=== PATIENT | female | born 1975 | race Asian ===

== ENCOUNTER → 2016-09-17 20:14 | Emergency (ER) | END | disposition left against medical advice (07) | LOC: UCEAST 20:14 | DX: R21 Rash and other nonspecific skin eruption (principal); Z53.21 Procedure and treatment not carried out due to patient leaving prior to being seen by health care provider ==

== ENCOUNTER 2016-09-18 09:45 | Emergency (ER) | END 2016-09-18 10:42 | disposition left against medical advice (07) | LOC: UCEAST 09:45 | DX: R21 Rash and other nonspecific skin eruption (principal); Z53.21 Procedure and treatment not carried out due to patient leaving prior to being seen by health care provider ==

== ENCOUNTER 2016-09-18 10:43 | Emergency (ER) | payer SELFPAY ==
[2016-09-18 10:58] VITALS: BP 105/70
--- NOTE | 2016-09-18 12:01 | UC ---
Skin Complaint HPI - HPI Summary HPI Summary: 41 y/o female presents to the clinic c/o of a rash on the back of her neck for the past 2 month. She states she was using Ketaconazol 2%cream, but rash hasn' t resolved. She realized yesterday the topical cream has since 2010. Patient states rash itches a lot and is increasing in size. Pt denies fever, N/ V/D or SOB. She also c/o of a small ball she feels in her RT forearm. She states she noticed about a week ago with no associated pain. - History of Current Complaint Chief Complaint: UCSkin Time Seen by Provider: 09/18/16 11:10 Stated Complaint: RASH,BUMP ON HER NECK Hx Obtained From: Patient Hx Last Menstrual Period: 09/01/16 ?: No Onset/Duration: Sudden Onset, Gradual Onset, Lasting Weeks, Still Present Timing: Constant Onset Severity: Moderate Current Severity: Moderate Pain Intensity: 0 Pain Scale Used: 0-10 Numeric Location: Other - Posterior side of the neck spreading to the scalp Character: Pruritus, Redness, Raised Aggravating: Wet Conditions, Touch Alleviating: Nothing Associated Signs & Symptoms: Positive: Negative, Nausea - Allergy/Home Medications Allergies/Adverse Reactions: Allergies Allergy/AdvReac Type Severity Reaction Status Date / Time Cat Hair Extract Allergy Intermediate Difficulty Verified 09/18/16 10:51 Breathing/Wheezing Latex Allergy Mild Itching Verified 09/18/16 10:51 Lactose Intolerance AdvReac Mild Unknown Verified 09/18/16 10:51 Reaction Details Home Medications: Home Medications Ketoconazole (Topical) [Ketoconazole] 1 applic TOPICAL BID 09/18/16 [History Confirmed 09/18/16] Simethicone [Gas-X] 1 tab PO DAILY PRN 09/18/16 [History Confirmed 09/18/16] Review of Systems Constitutional: Negative Skin: Rash - posterior neck rash with itchiness, Other - small mass in the forearm with no pain or swelling Eyes: Negative ENT: Negative Respiratory: Negative Cardiovascular: Negative Gastrointestinal: Negative Genitourinary: Negative Motor: Negative Neurovascular: Negative Musculoskeletal: Negative Neurological: Negative Psychological: Negative All Other Systems Reviewed And Are Negative: Yes PMH/Surg Hx/FS Hx/Imm Hx Previously Healthy: Yes Endocrine History Of: Denies: Diabetes, Thyroid Disease Cardiovascular History Of: Denies: Cardiac Disorders, Hypertension, Pacemaker/ICD Respiratory History Of: Denies: COPD, Asthma GI/ History Of: Denies: Gastroesophageal Reflux, Renal Disease Neurological History Of: Denies: CVA, Dementia, Seizures Psychological History Of: Reports: Depression Other History Of: Negative For: Anticoagulant Therapy - Surgical History Surgical History: Yes Surgery Procedure, Year, and Place: LEFT ANKLE and knee 1998, L4/5 LAMINECTOMY AND DISCECTOMY -02-16-12 [place], [place] , right knee surgery 2000 - Family History Known Family History: Positive: Unknown - patient is adopted - Social History Lives: With Family Alcohol Use: Occasionally Substance Use Type: None Smoking Status (MU): Never Smoked Tobacco - Immunization History Most Recent Influenza Vaccination: fall 2015 Most Recent Tetanus Shot: 11/15/13 Most Recent Pneumonia Vaccination: no history Physical Exam Triage Information Reviewed: Yes Appearance: Well-Appearing, No Pain Distress, Well-Nourished, Thin Vital Signs: Initial Vital Signs Temp 98.1 F 09/18/16 10:53 Pulse 64 09/18/16 10:53 Resp 16 09/18/16 10:53 BP 105/70 09/18/16 10:53 Pulse Ox 98 09/18/16 10:53 Vital Signs Reviewed: Yes Eye Exam: Normal ENT Exam: Normal ENT: Positive: Normal ENT inspection, Hearing grossly normal, Pharynx normal, TMs normal. Negative: Nasal congestion Dental Exam: Normal Neck exam: Normal Neck: Positive: Supple, Nontender, No Lymphadenopathy Respiratory Exam: Normal Respiratory: Positive: Chest non-tender, Lungs clear, Normal breath sounds Cardiovascular Exam: Normal Cardiovascular: Positive: RRR, No Murmur, Pulses Normal Abdominal Exam: Normal Abdomen Description: Positive: Nontender, No Organomegaly, Soft Bowel Sounds: Positive: Present Musculoskeletal Exam: Normal Neurological Exam: Normal Psychological Exam: Normal Skin: Positive: rashes - Posterior neck skin rash with erythema and raised border about 2cm x3cm in size with central clearing and scaling. no swelling or tenderness on palpation. Spreading to the scalp. Also small subcutaneous rolling mass on ventral side of Rt forearm. size:1cm no swelling or erythema noted, no tenderness on palpation Course/Dx - Differential Diagnoses - Skin Complaint Differential Diagnoses: Cellulitis, Eczema, Scabies, Tinea, Urticaria - Diagnoses Provider Diagnoses: tinea corporis, lipoma Discharge - Discharge Plan Condition: Stable Disposition: HOME Prescriptions: Terbinafine HCl (Topical) [Lamisil At] 1 % TOPICAL DAILY #1 cre Patient Education Materials: Tinea Corporis (ED), Lipoma (ED) Referrals: [facility] [Outside] (2 weeks ) Additional Instructions: Please apply topical cream as indicated. Use Selenium Sulfide shampoo topically 3 times per week for a month. If symptoms persists please f/u with your PCP.
== END 2016-09-18 11:58 | disposition home or self-care (01) ==
LOC: UCEAST 10:43
DX: B35.4 Tinea corporis (principal); D17.1 Benign lipomatous neoplasm of skin and subcutaneous tissue of trunk; F32.9 Major depressive disorder, single episode, unspecified
CPT/HCPCS: 99212; G0463

== ENCOUNTER 2017-05-27 20:28 | Emergency (ER) | payer BC, OTHER ==
--- NOTE | 2017-05-27 21:22 | RAD ---
INDICATION: Trauma. COMPARISON: Comparison is made with a prior CT of the cervical spine from May 06, 2013. TECHNIQUE: Contiguous axial sections were obtained from the skull base through the T3 vertebra. Images were reconstructed in the sagittal and coronal planes. FINDINGS: There is straightening of the cervical spine with loss of the normal cervical lordosis. No prevertebral soft tissue swelling or fracture is seen. The intervertebral disc spaces appear maintained. There is mild uncinate process spurring at multiple levels. No significant spinal canal narrowing is seen. IMPRESSION: STRAIGHTENING OF THE CERVICAL SPINE, NO EVIDENCE FOR FRACTURE.
--- NOTE | 2017-05-27 21:40 | RAD ---
INDICATION: Right knee injury. TECHNIQUE: 2 views of the right knee were obtained. FINDINGS: The bones are in normal alignment. There is anterior soft tissue swelling. Air bubbles project over the region of the distal quadriceps muscle and tendon anterior to the femur which would be with the patient's history of a laceration injury. No fracture is seen. IMPRESSION: THERE IS AIR WITHIN THE ANTERIOR SOFT TISSUES, NO FRACTURE IS SEEN.
[2017-05-28] MEDS ORDERED: traMADol TAB* 50 MG PO ONE (00:09)
[2017-05-28 01:05] VITALS: BP 120/79
--- NOTE | 2017-05-29 22:59 | ED ---
Laceration/Wound HPI - HPI Summary HPI Summary: Patient presents [facility] the ED [facility] with a laceration to the anterior right knee from a snowboarding accident a few hours ago. She states when she was facing up until she was hit by a skier coming down the hill from behind she fell backwards but denies hitting her head. She reports a mild amount of dizziness and was placed in a c-collar on arrival. She denies any loss of consciousness and on physical exam she notes to no symptoms other than some knee pain. Knee x-ray obtained and negative for any findings. Laceration appears to be 2.5 cm and very superficial. Denies any health concerns and takes no medications. - History of Current Complaint Stated Complaint: HEAD INJURY/LACERATION RT LEG Time Seen by Provider: 05/27/17 20:55 Hx Obtained From: Patient Hx Last Menstrual Period: 09/01/16 Mechanism of Injury: Sharp/Blunt Trauma Onset/Duration: Sudden Onset Aggravating: Movement Alleviating: Compression Timing: Constant Onset Severity: Mild Current Severity: Mild Pain Intensity: 0 Pain Scale Used: 0-10 Numeric Associated Signs & Symptoms: Negative - Allergy/Home Medications Allergies/Adverse Reactions: Allergies Allergy/AdvReac Type Severity Reaction Status Date / Time MS Cat Hair Extract Allergy Intermediate Difficulty Verified 05/27/17 23:41 [Cat Hair Extract] Breathing/Wheezing MS Latex [Latex] Allergy Mild Itching Verified 05/27/17 23:41 MS Lactose Intolerance AdvReac Mild Unknown Verified 05/27/17 23:41 Reaction Details PMH/Surg Hx/FS Hx/Imm Hx Previously Healthy: Yes Endocrine/Hematology History: Denies: Hx Anticoagulant Therapy, Hx Diabetes, Hx Thyroid Disease Cardiovascular History: Denies: Hx Hypertension, Hx Pacemaker/ICD Respiratory History: Denies: Hx Asthma, Hx Chronic Obstructive Pulmonary Disease (COPD) GI History: Reports: Hx Irritable Bowel History: Denies: Hx Renal Disease Musculoskeletal History: Reports: Hx Arthritis Sensory History: Denies: Hx Hearing Aid Neurological History: Denies: Hx Dementia, Hx Seizures Psychiatric History: Reports: Hx Depression Denies: Hx Panic Disorder, Hx Substance Abuse - Surgical History Surgery Procedure, Year, and Place: LEFT ANKLE and knee 1998, L4/5 LAMINECTOMY AND DISCECTOMY -02-16-12 [place], [place] , right knee surgery 2000 Hx Anesthesia Reactions: No - Immunization History Date of Tetanus Vaccine: utd Date of Influenza Vaccine: 2016 Hx Pertussis Vaccination: No Immunizations Up to Date: Unable to Obtain/Confirm Infectious Disease History: No Infectious Disease History: Reports: Hx Hepatitis - hep as an Denies: Hx Clostridium Difficile, Hx Human Immunodeficiency Virus (HIV), Hx Shingles, Hx Tuberculosis, Traveled Outside the [place] in Last 30 Days - Family History Known Family History: Positive: Unknown - patient is adopted - Social History Occupation: Employed Full-time Lives: With Family Alcohol Use: Occasionally Hx Substance Use: Yes Substance Use Type: Reports: None Hx Tobacco Use: No Smoking Status (MU): Never Smoked Tobacco Review of Systems Constitutional: Negative Negative: Fever, Chills, Fatigue Eyes: Negative Cardiovascular: Negative Genitourinary: Negative Positive: no symptoms reported, see HPI Positive: Arthralgia Positive: Other - 2.5 cm horizontal laceration to the anterior knee Neurological: Negative All Other Systems Reviewed And Are Negative: Yes Physical Exam Triage Information Reviewed: Yes Vital Signs On Initial Exam: Initial Vitals Temp Pulse Resp BP Pulse Ox 99.6 F 81 18 116/79 97 05/27/17 20:34 05/27/17 20:34 05/27/17 20:34 05/27/17 20:34 05/27/17 20:34 Vital Signs Reviewed: Yes Appearance: Positive: Well-Appearing, Well-Nourished Skin: Positive: Warm, Skin Color Reflects Adequate Perfusion, Other - 2.5 cm laceration to the anterior knee Eyes: Positive: Normal, KELVIN ENT: Positive: Normal ENT inspection, Hearing grossly normal Neck: Positive: Supple, Nontender, No Lymphadenopathy Respiratory/Lung Sounds: Positive: Clear to Auscultation, Breath Sounds Present Cardiovascular: Positive: RRR, Pulses are Symmetrical in both Upper and Lower Extremities Musculoskeletal: Positive: Normal, Strength/ROM Intact, Pain @ - Anterior right knee, full range of motion Neurological: Positive: Speech Normal Psychiatric: Positive: Normal AVPU Assessment: Alert Diagnostics - Vital Signs Vital Signs Temp Pulse Resp BP Pulse Ox 05/28/17 01:04 99.9 F 78 16 120/79 97 05/27/17 20:34 99.6 F 81 18 116/79 97 - Laboratory Lab Statement: Any lab studies that have been ordered have been reviewed, and results considered in the medical decision making process. Laceration Repair Course/Dx - Course Course Of Treatment: Patient is evaluated for right knee pain and laceration and neck discomfort after sustaining a skiing accident. Cervical CT spine ordered and negative for any fracture or other acute finding. Patient is rotating about the neck well as well as flexion and extension. Denies numbness , tingling in the bilateral upper extremities. She endorses 5 out of 10 pain to the anterior knee, but has full range of motion. Timeout obtained laceration irrigated well with 20 cc normal saline. 2ml lidocaine used locally and 4 sutures placed. The knee was gauze and then Mesfin wrapped. Patient is able to ambulate well prior to discharge. She will follow up for suture removal in 7 days. She denies any other concerns at this time. - Clinical Impression Provider Diagnoses: Laceration of right knee Discharge - Discharge Plan Condition: Stable Disposition: HOME Patient Education Materials: Care For Your Stitches (ED) Referrals: No Primary Care Phys,NOPCP [Primary Care Provider] - Additional Instructions: Suture removal in 7 days Ibuprofen 600 mg 3 times daily for inflammation Elevate and ice the knee periodically throughout the day up to 3-5 times daily Keep the knee Mesfin wrapped 24 hours If you feel the sutures are pulling, you may keep the Mesfin wrap on for 7 days Signs of infection include streaks of red around the wound, swelling to the laceration or abnormal drainage or if you develop a fever If these symptoms occur return to the ED immediately
== END 2017-05-28 01:04 | disposition home or self-care (01) ==
LOC: ED 20:28
DX: S81.011A Laceration without foreign body, right knee, initial encounter (principal); W50.0XXA Accidental hit or strike by another person, initial encounter; Y93.23 Activity, snow (alpine) (downhill) skiing, snowboarding, sledding, tobogganing and snow tubing; Y92.9 Unspecified place or not applicable; K58.9 Irritable bowel syndrome, unspecified; M54.2 Cervicalgia
CPT/HCPCS: 12001; 72125; 99282; A9270-GY

== ENCOUNTER 2017-06-03 13:40 | Emergency (ER) | payer BC, OTHER ==
[2017-06-03 13:54] VITALS: BP 121/76
--- NOTE | 2017-06-03 18:01 | ED ---
Skin Complaint - HPI Summary HPI Summary: Patient presents to the ED with a recheck and suture removal of the right knee. Sutures placed last week by myself for a laceration from a skiing accident. No ecchymosis, swelling, other color or temperature changes around the knee is present. Full range of motion without pain. 7 sutures remain discretely in place. Clean dry and intact and healing well. She was not placed on antibiotics. She is here for suture removal and denies any concerns at this time. - History of Current Complaint Chief Complaint: EDLacSutureRecheck Time Seen by Provider: 06/03/17 13:48 Stated Complaint: NEEDS TO HAVE STICHES OUT Hx Obtained From: Patient Hx Last Menstrual Period: 09/01/16 Onset/Duration: Started Hours Ago Skin Exposure Onset/Duration: Days Ago Onset Severity: Mild Current Severity: None Pain Intensity: 0 Pain Scale Used: 0-10 Numeric Skin Location: Leg Aggravating Symptom(s): Nothing Alleviating Symptom(s): Nothing Associated Signs & Symptoms: Negative Related History: Trauma - Allergy/Home Medications Allergies/Adverse Reactions: Allergies Allergy/AdvReac Type Severity Reaction Status Date / Time MS Cat Hair Extract Allergy Intermediate Difficulty Verified 05/27/17 23:41 [Cat Hair Extract] Breathing/Wheezing MS Latex [Latex] Allergy Mild Itching Verified 05/27/17 23:41 MS Lactose Intolerance AdvReac Mild Unknown Verified 05/27/17 23:41 Reaction Details PMH/Surg Hx/FS Hx/Imm Hx Previously Healthy: Yes Endocrine/Hematology History: Denies: Hx Anticoagulant Therapy, Hx Diabetes, Hx Thyroid Disease Cardiovascular History: Denies: Hx Hypertension, Hx Pacemaker/ICD Respiratory History: Denies: Hx Asthma, Hx Chronic Obstructive Pulmonary Disease (COPD) GI History: Reports: Hx Irritable Bowel History: Denies: Hx Renal Disease Musculoskeletal History: Reports: Hx Arthritis Neurological History: Denies: Hx Dementia, Hx Seizures Psychiatric History: Reports: Hx Depression Denies: Hx Panic Disorder, Hx Substance Abuse - Surgical History Surgery Procedure, Year, and Place: LEFT ANKLE and knee 1998, L4/5 LAMINECTOMY AND DISCECTOMY -02-16-12 [place], [place] , right knee surgery 2000 Hx Anesthesia Reactions: No - Immunization History Date of Tetanus Vaccine: utd Date of Influenza Vaccine: 2015 Infectious Disease History: No Infectious Disease History: Reports: Hx Hepatitis - hep as an Denies: Hx Clostridium Difficile, Hx Human Immunodeficiency Virus (HIV), Hx Shingles, Hx Tuberculosis, Traveled Outside the [place] in Last 30 Days - Family History Known Family History: Positive: Unknown - patient is adopted - Social History Occupation: Employed Full-time Lives: With Family Alcohol Use: Occasionally Hx Substance Use: Yes Substance Use Type: Reports: None Hx Tobacco Use: No Smoking Status (MU): Never Smoked Tobacco Review of Systems Constitutional: Negative Negative: Fever, Chills, Fatigue Eyes: Negative Respiratory: Negative Genitourinary: Negative Positive: no symptoms reported, see HPI Negative: Arthralgia, Myalgia, Decreased ROM, Edema Positive: Other - healing 3 cm wound with 7 sutures Neurological: Negative All Other Systems Reviewed And Are Negative: Yes Physical Exam Triage Information Reviewed: Yes Vital Signs On Initial Exam: Initial Vitals Temp Pulse Resp BP Pulse Ox 97 F 78 17 121/76 100 06/03/17 13:46 06/03/17 13:46 06/03/17 13:46 06/03/17 13:46 06/03/17 13:46 Vital Signs Reviewed: Yes Appearance: Positive: Well-Appearing, Well-Nourished Skin: Positive: Warm, Skin Color Reflects Adequate Perfusion, Other - No evidence of dehiscence or infection Head/Face: Positive: Normal Head/Face Inspection Eyes: Positive: KELVIN, Conjunctiva Clear Neck: Positive: Supple, No Lymphadenopathy Respiratory/Lung Sounds: Positive: Clear to Auscultation, Breath Sounds Present Cardiovascular: Positive: RRR, Pulses are Symmetrical in both Upper and Lower Extremities Musculoskeletal: Positive: Normal, Strength/ROM Intact Neurological: Positive: Speech Normal Psychiatric: Positive: Affect/Mood Appropriate AVPU Assessment: Alert Diagnostics - Vital Signs Vital Signs Temp Pulse Resp BP Pulse Ox 06/03/17 13:56 98.2 F 81 17 121/76 100 06/03/17 13:46 97 F 78 17 121/76 100 - Laboratory Lab Statement: Any lab studies that have been ordered have been reviewed, and results considered in the medical decision making process. Course/Dx - Course Course Of Treatment: During the course of treatment, the patient is evaluated for suture removal. The wound appears clean dry and intact. 7 sutures are discretely in place with no surrounding erythema, swelling or other signs of infection. She appears otherwise well and denies any concerns. Sutures removed , antibiotic ointment and gauze wrapped. - Diagnoses Provider Diagnoses: Visit for suture removal Discharge - Discharge Plan Condition: Stable Disposition: HOME Patient Education Materials: Stitches Removal (ED) Referrals: Lazaro Lomeli MD [Primary Care Provider] - Additional Instructions: anitbiotic ointment over the area if dry
== END 2017-06-03 13:56 | disposition home or self-care (01) ==
LOC: ED 13:40
DX: S81.011D Laceration without foreign body, right knee, subsequent encounter (principal); V00.328D Other snow-ski accident, subsequent encounter

== ENCOUNTER 2017-06-04 16:02 | Emergency (ER) | payer OTHER ==
[2017-06-04 16:35] VITALS: BP 0/0
--- NOTE | 2017-06-04 17:10 | ED ---
Skin Complaint - HPI Summary HPI Summary: Patient presents to the ED for the second time for wound recheck. Sutures were removed yesterday by myself. She arrives today with serosanguineous drainage from the area which is mild. She continues to keep the area wrapped. She is concerned with infection. She was seen several months ago for a back infection , and became septic with MSSA positive, MRSA negative. She is concerned over a furthering infection is requesting antibiotics. She denies any other symptoms including fevers, sweats, chills. No signs of systemic illness. There is no erythema around the wound. Small amount of serosanguineous drainage from the area without pus. No swelling or other signs of infection. - History of Current Complaint Chief Complaint: EDLacSutureRecheck Time Seen by Provider: 06/04/17 16:16 Stated Complaint: RT LEG POSSIBLE INFECTION Hx Obtained From: Patient Hx Last Menstrual Period: 09/01/16 Onset/Duration: Started Hours Ago Skin Exposure Onset/Duration: Hours Ago Timing: Constant Onset Severity: Moderate Current Severity: Moderate Pain Intensity: 0 Pain Scale Used: 0-10 Numeric Skin Location: Other: - Right knee Aggravating Symptom(s): Nothing Alleviating Symptom(s): Nothing Associated Signs & Symptoms: Negative Related History: Trauma - Allergy/Home Medications Allergies/Adverse Reactions: Allergies Allergy/AdvReac Type Severity Reaction Status Date / Time MS Cat Hair Extract Allergy Intermediate Difficulty Verified 05/27/17 23:41 [Cat Hair Extract] Breathing/Wheezing MS Latex [Latex] Allergy Mild Itching Verified 05/27/17 23:41 MS Lactose Intolerance AdvReac Mild Unknown Verified 05/27/17 23:41 Reaction Details PMH/Surg Hx/FS Hx/Imm Hx Previously Healthy: Yes Endocrine/Hematology History: Denies: Hx Anticoagulant Therapy, Hx Diabetes, Hx Thyroid Disease Cardiovascular History: Denies: Hx Hypertension, Hx Pacemaker/ICD Respiratory History: Denies: Hx Asthma, Hx Chronic Obstructive Pulmonary Disease (COPD) GI History: Reports: Hx Irritable Bowel History: Denies: Hx Renal Disease Musculoskeletal History: Reports: Hx Arthritis Neurological History: Denies: Hx Dementia, Hx Seizures Psychiatric History: Reports: Hx Depression Denies: Hx Panic Disorder, Hx Substance Abuse - Surgical History Surgery Procedure, Year, and Place: LEFT ANKLE and knee 1998, L4/5 LAMINECTOMY AND DISCECTOMY -02-16-12 [place], [place] , right knee surgery 2000 Hx Anesthesia Reactions: No - Immunization History Date of Tetanus Vaccine: UTD Date of Influenza Vaccine: 2016 Hx Pertussis Vaccination: No Immunizations Up to Date: Unable to Obtain/Confirm Infectious Disease History: No Infectious Disease History: Reports: Hx Hepatitis - hep as an infant Denies: Hx Clostridium Difficile, Hx Human Immunodeficiency Virus (HIV), Hx Shingles, Hx Tuberculosis, Traveled Outside the [place] in Last 30 Days - Family History Known Family History: Positive: Unknown - patient is adopted - Social History Occupation: Employed Full-time Lives: With Family Alcohol Use: Occasionally Hx Substance Use: Yes Substance Use Type: Reports: None Hx Tobacco Use: No Smoking Status (MU): Never Smoked Tobacco Review of Systems Constitutional: Negative Negative: Fever, Chills, Fatigue, Skin Diaphoresis Eyes: Negative ENT: Negative Cardiovascular: Negative Positive: no symptoms reported, see HPI Musculoskeletal: Negative Positive: Other - small amount of serosanguineous drainage from the right knee Neurological: Negative All Other Systems Reviewed And Are Negative: Yes Physical Exam Triage Information Reviewed: Yes Vital Signs On Initial Exam: Initial Vitals Temp Pulse Resp BP Pulse Ox 97.9 F 72 18 122/78 100 06/04/17 16:09 06/04/17 16:09 06/04/17 16:09 06/04/17 16:09 06/04/17 16:09 Vital Signs Reviewed: Yes Appearance: Positive: Well-Appearing, Well-Nourished Skin: Positive: Warm, Skin Color Reflects Adequate Perfusion, Other - Serosanguineous drainage from right knee Head/Face: Positive: Normal Head/Face Inspection Eyes: Positive: EOMI, KELVIN Neck: Positive: Supple Respiratory/Lung Sounds: Positive: Clear to Auscultation, Breath Sounds Present Musculoskeletal: Positive: Normal, Strength/ROM Intact Neurological: Positive: Speech Normal Psychiatric: Positive: Normal, Affect/Mood Appropriate - [place] Coma Scale Best Eye Response: 4 - Spontaneous Best Motor Response: 6 - Obeys Commands Best Verbal Response: 5 - Oriented Coma Scale Total: 15 Diagnostics - Vital Signs Vital Signs Temp Pulse Resp BP Pulse Ox 06/04/17 16:35 0 F 0 0 0/0 0 06/04/17 16:09 97.9 F 72 18 122/78 100 - Laboratory Lab Statement: Any lab studies that have been ordered have been reviewed, and results considered in the medical decision making process. Course/Dx - Course Course Of Treatment: During the first of treatment, I have evaluated the wound well. No signs of infection including erythema, warmth, pus drainage. There is a small amount of serosanguineous fluid drainage which is to be expected after suture removal. The wound is clean and intact. I placed antibiotic ointment on it, gauze wrapped in Mesfin wraps. I have given her a 5 day supply of Keflex to prevent any infection. She is okay with discharge at this time. - Diagnoses Provider Diagnoses: Healing wound Discharge - Discharge Plan Condition: Stable Disposition: HOME Prescriptions: Cephalexin CAP* [Keflex CAP*] 500 mg PO QID #20 cap MDD 4 Referrals: Lazaro Lomeli MD [Primary Care Provider] - Additional Instructions: Keflex 4 times daily 5 days Keep the area covered 3 days You may notice small amounts of serous fluid from the area
== END 2017-06-04 16:35 | disposition home or self-care (01) ==
LOC: ED 16:02
DX: Z48.00 Encounter for change or removal of nonsurgical wound dressing (principal)
CPT/HCPCS: 99282

== ENCOUNTER 2017-06-07 18:32 | Emergency (ER) | payer OTHER ==
[2017-06-07 19:52] VITALS: BP 107/71
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
== END 2017-06-07 20:45 | disposition home or self-care (01) ==
LOC: UCEAST 18:32
DX: T81.33XA Disruption of traumatic injury wound repair, initial encounter (principal); Z91.040 Latex allergy status
CPT/HCPCS: 99213; G0463

== ENCOUNTER 2018-03-19 14:50 | Emergency (ER) | payer BC, OTHER ==
[2018-03-19 16:15] VITALS: BP 112/75
--- NOTE | 2018-03-19 16:29 | UC ---
Respiratory Complaint HPI - HPI Summary HPI Summary: 42-year-old woman comes in to clinic today with a chief complaint of one week of symptoms of cough chest congestion yellow sputum. She is not a smoker. She is short of breath with cough. He's been using [id number] medications which haven't been helping with the cough but they're not working very well any more. - History of Current Complaint Chief Complaint: UCRespiratory Stated Complaint: COUGH Time Seen by Provider: 03/19/18 16:18 Hx Last Menstrual Period: 03/15/18 Pain Intensity: 0 - Allergies/Home Medications Allergies/Adverse Reactions: Allergies Allergy/AdvReac Type Severity Reaction Status Date / Time cat dander Allergy Difficulty Verified 03/19/18 16:17 Breathing lactose Allergy GI Upset Verified 03/19/18 16:17 latex Allergy Itching Verified 03/19/18 16:17 PMH/Surg Hx/FS Hx/Imm Hx Previously Healthy: Yes Other History Of: Negative For: Hepatitis B, Anticoagulant Therapy - Surgical History Surgical History: Yes Surgery Procedure, Year, and Place: LEFT ANKLE and knee 1998, L4/5 LAMINECTOMY AND DISCECTOMY -02-16-12 [place], [place] , right knee surgery 2000 - Family History Known Family History: Positive: Unknown - patient is adopted - Social History Alcohol Use: Occasionally Substance Use Type: None Smoking Status (MU): Never Smoked Tobacco - Immunization History Most Recent Influenza Vaccination: fall 2015 Most Recent Tetanus Shot: 11/15/13 Most Recent Pneumonia Vaccination: no history Review of Systems All Other Systems Reviewed And Are Negative: Yes Constitutional: Positive: Negative Skin: Positive: Negative Eyes: Positive: Negative ENT: Positive: Sore Throat, Nasal Discharge, Sinus Congestion Respiratory: Positive: Shortness Of Breath, Cough Cardiovascular: Positive: Negative Gastrointestinal: Positive: Negative Motor: Positive: Negative Neurovascular: Positive: Negative Musculoskeletal: Positive: Negative Neurological: Positive: Negative Psychological: Positive: Negative Is Patient Immunocompromised?: No Physical Exam Triage Information Reviewed: Yes Appearance: Well-Appearing, No Pain Distress, Well-Nourished Vital Signs: Initial Vital Signs Temp 98.0 F 03/19/18 16:13 Pulse 63 03/19/18 16:13 Resp 16 03/19/18 16:13 BP 112/75 03/19/18 16:13 Pulse Ox 99 03/19/18 16:13 Vital Signs Reviewed: Yes Eye Exam: Normal Eyes: Positive: Conjunctiva Clear ENT: Positive: Pharyngeal erythema, Nasal congestion, Nasal drainage, TMs normal Neck exam: Normal Neck: Positive: Supple Respiratory Exam: Normal Respiratory: Positive: Lungs clear, Normal breath sounds, No respiratory distress Cardiovascular: Positive: RRR Musculoskeletal Exam: Normal Musculoskeletal: Positive: Strength Intact, ROM Intact Neurological Exam: Normal Neurological: Positive: Alert, Muscle Tone Normal Psychological Exam: Normal Psychological: Positive: Age Appropriate Behavior Skin Exam: Normal UC Diagnostic Evaluation - Laboratory O2 Sat by Pulse Oximetry: 99 Respiratory Course/Dx - Course Course Of Treatment: DISCUSSED VIRAL VERSES BACTERIAL INFECTIONS AND THE ROLE OF ANTIBIOTICS. THE PATIENT PREFERS TO BE ON ANTIBIOTICS AT THIS TIME. - Differential Dx/Diagnosis Provider Diagnoses: BRONCHITIS Discharge - Sign-Out/Discharge Documenting (check all that apply): Patient Departure All imaging exams completed and their final reports reviewed: No Studies - Discharge Plan Condition: Stable Disposition: HOME Prescriptions: Azithromyxin ANNIE (NF) [Z-Annie (Zithromax) 250 mg tabs #6] 2 tab PO .TODAY, THEN 1 DAILY #6 tab Benzonatate CAP* [Tessalon 100 MG CAP*] 100 mg PO TID PRN #15 cap PRN Reason: Cough Patient Education Materials: Acute Bronchitis (ED) Referrals: Lazaro Lomeli MD [Primary Care Provider] - Additional Instructions: FOLLOW UP WITH YOUR DOCTOR IF NOT COMPLETELY IMPROVED. GET RECHECKED FOR ANY WORSENING OF YOUR CONDITION OR QUESTIONS OR CONCERNS. - Billing Disposition and Condition Condition: STABLE Disposition: Home
== END 2018-03-19 16:39 | disposition home or self-care (01) ==
LOC: UCEAST 14:50
DX: J40 Bronchitis, not specified as acute or chronic (principal)
CPT/HCPCS: 99212; G0463

== ENCOUNTER 2018-05-06 11:51 | Emergency (ER) | payer BC ==
--- NOTE | 2018-05-06 12:42 | UC ---
Respiratory Complaint HPI - HPI Summary HPI Summary: 42 yo female presents with sinus pain/pressure/congestion and dry cough for the last 2 weeks. Has been taking OTC cold medicine and mucinex with no relief. Denies fever, chills, sore throat, SOB, chest pain, n/v. - History of Current Complaint Stated Complaint: COUGH,CONGESTION Time Seen by Provider: 05/06/18 12:41 Hx Obtained From: Patient Hx Last Menstrual Period: 03/15/18 Onset/Duration: Gradual Onset Timing: Constant Severity Initially: Moderate Severity Currently: Moderate Pain Intensity: 5 Pain Scale Used: 0-10 Numeric Character: Cough: Nonproductive - Allergies/Home Medications Allergies/Adverse Reactions: Allergies Allergy/AdvReac Type Severity Reaction Status Date / Time cat dander Allergy Difficulty Verified 05/06/18 12:51 Breathing lactose Allergy GI Upset Verified 05/06/18 12:51 latex Allergy Itching Verified 05/06/18 12:51 Home Medications: Home Medications Guaifenesin/Pseudoephedrne HCl [Mucinex D ER Tablet] 1 tab PO ONCE PRN 05/06/18 [History Confirmed 05/06/18] PMH/Surg Hx/FS Hx/Imm Hx - Additional Past Medical History Additional PMH: None Other History Of: Negative For: Hepatitis B, Anticoagulant Therapy - Surgical History Surgical History: Yes Surgery Procedure, Year, and Place: LEFT ANKLE and knee 1998, L4/5 LAMINECTOMY AND DISCECTOMY -02-16-12 [place], [place] , right knee surgery 2000 - Family History Known Family History: Positive: Unknown - adopted - Social History Occupation: Employed Full-time Lives: With Family Alcohol Use: Occasionally Substance Use Type: None Smoking Status (MU): Never Smoked Tobacco - Immunization History Most Recent Influenza Vaccination: fall 2015 Most Recent Tetanus Shot: 11/15/13 Most Recent Pneumonia Vaccination: no history Review of Systems All Other Systems Reviewed And Are Negative: Yes Constitutional: Positive: Negative Skin: Positive: Negative Eyes: Positive: Negative ENT: Positive: Nasal Discharge, Sinus Congestion, Sinus Pain/Tenderness Respiratory: Positive: Cough Cardiovascular: Positive: Negative Gastrointestinal: Positive: Negative Neurovascular: Positive: Negative Neurological: Positive: Negative Psychological: Positive: Negative Physical Exam - Summary Physical Exam Summary: GENERAL: NAD. WDWN. No pain distress. SKIN: No rashes, sores, lesions, or open wounds. HEENT: Head: AT/NC Eyes: EOM intact. Conjunctiva clear without inflammation or discharge. Ears: Hearing grossly normal. TMs intact, no bulging, erythema, or edema. Nose: Nasal mucosa moderately swollen and erythematous without discharge. TTP maxillary > frontal sinus. Positive post nasal drip Throat: Posterior oropharynx without exudates, erythema, or tonsillar enlargement. Uvula midline. NECK: Supple. Nontender. No lymphadenopathy. CHEST: CTAB. No r/r/w. No accessory muscle use. Breathing comfortably and in no distress. CV: RRR. Without m/r/g. Pulses intact. NEURO: Alert. PSYCH: Age appropriate behavior. Triage Information Reviewed: Yes Vital Signs: Vital Signs: Temp Pulse Resp BP Pulse Ox 98.3 F 72 18 118/74 100 05/06/18 12:43 05/06/18 12:43 05/06/18 12:43 05/06/18 12:43 05/06/18 12:43 Vital Signs Reviewed: Yes Respiratory Course/Dx - Course Course Of Treatment: Sinusitis and cough. - Differential Dx/Diagnosis Provider Diagnosis: Sinusitis Discharge - Sign-Out/Discharge Documenting (check all that apply): Patient Departure All imaging exams completed and their final reports reviewed: No Studies - Discharge Plan Condition: Stable Disposition: HOME Prescriptions: Amoxicillin PO (*) [Amoxicillin 875 MG (*)] 875 mg PO BID #14 tab Benzonatate CAP* [Tessalon 100 MG CAP*] 100 mg PO TID PRN #21 cap PRN Reason: Cough Fluconazole 150 MG (NF) [Diflucan 150 mg (NF)] 150 mg PO ONCE #1 tab Patient Education Materials: Sinusitis (ED) Referrals: Lazaro Lomeli MD [Medical Doctor] - Additional Instructions: If you develop a fever, shortness of breath, chest pain, new or worsening symptoms - please call your PCP or go to the ED. - Billing Disposition and Condition Condition: STABLE Disposition: Home - Attestation Statements Provider Attestation: Per institutional requirements, I have reviewed the chart, however, I was not consulted specifically or made aware of this patient by the midlevel provider. I did not personally evaluate, interact with , or disposition this patient.
--- OUTSIDE RECORDS SUMMARY | 2018-05-06 12:50 | XMS REPORT | Continuity of Care Document ---
:1975 External Reference #:[id number] Author Name Tru Katz Care Team Providers Name Role Phone Payton Olguin MD Primary Care Physician Unavailable Payers Type Date Identification Numbers Payment Provider Subscriber Effective: Policy Number: [id number] [employer] Madeline Ramirez 2016 PayID: [id number] [address] [address] [place] [address] Effective: 2017 Policy Number: [id number] [facility] Madeline Ramirez Onset: 2017 Group Number: [id number] [phone] Group Name: [phone] [place] [address] PayID: [id number] Onset: 2002 Policy Number: Pankaj Westfall Madeline Ramirez [id number] Services Group Number: [id number] [address] [phone] PayID: [id number] [place] [address] Expires: 2017 Policy Number: Lifetime Benefit Madeline Ramirez [id number] Solution Group Number: [id number] [address] [address] PayID: [id number] [place] [phone] Advance Directives Description No Information Available Problems Date Description Provider Status Onset: 05/09/2013 Brachial neuritis Demetris Bowen M.D. Active Onset: 09/15/2013 Low back pain Demetris Bowen M.D. Active Onset: 03/16/2012 Postoperative infection Theodore Bernal M.D. Inactive Inactive: 06/10/2017 Onset: 03/16/2012 Septicemia due to Staphylococcus Theodore Bernal M.D. Inactive aureus Inactive: 06/10/2017 Onset: 05/09/2013 Neck pain Demetris Bowen M.D. Inactive Inactive: 06/10/2017 Onset: 05/09/2013 Postconcussion syndrome Demetris Bowen M.D. Inactive Inactive: 06/10/2017 Onset: 09/15/2013 Demetris Bowen M.D. Inactive Inactive: 06/10/2017 Family History Date Family Member(s) Problem(s) Comments General adopted Social History Type Date Description Comments Sex Unknown Marital Status Lives With Alone Occupation Teacher ETOH Use 06/10/2017 Drinks Alcoholic Beverages Occasionally Tobacco Use Start: Unknown Patient has never smoked Recreational Drug Use Denies Drug Use Smoking Status Reviewed: 04/21/18 Patient has never smoked Exercise Type/Frequency Exercises sporadically Allergies, Adverse Reactions, Alerts Date Description Reaction Status Severity Comments 03/16/2012 Latex Urticaria Active Medications Medication Date Status Form Strength Qnty SIG Indications Ordering Provider Fluconazole 06/10/ Active Tablets 150mg 3tabs 1 po q 3 Carly 2018 days Varn, N.P. Clobetasol 06/10/ Active Foam 0.05% 100gm topical Sanjay Propionate 2018 every day Silvestre Reynolds, prn to M.D.,FACP scalp Tart Cardoza / Active Capsules daily Unknown Advanced 0000 Ibuprofen 200 / Active Tablets 200mg 400-600mg Unknown 0000 every 6 hours as needed for pain. Multivitamin / Active Tablets 1 by mouth Unknown Adult 0000 every day Gas-X / Active Chewtabs 80mg 1 tab Unknown 0000 every 6 hours as needed gas pain Imodium A-D / Active Tablets 2mg 2 tabs by Unknown 0000 mouth with first loose stool, followed by 1 by mouth as needed loose stool up to max 4 per day Ibuprofen 05/09/ Hx Tablets 600mg 45tabs 1 po bid Demetris De La Cruz 2013 - prn for Jessi 09/15/ pain. take M.DAlbert 2013 with food. Bactrim DS 04/04/ Hx Tablets 800-160mg 7tabs 1 tab po Theodore 2011 - qd D. 05/09/ Gabe 2014 M.D. Methocarbamol 03/31/ Hx Tablets 500mg 60tabs one to two Demetris De La Cruz 2011 - up to qid Jessi 05/09/ prn for M.DAlbert 2013 spasm Use instead of metaxalone . Fluconazole 03/28/ Hx Tablets 100mg 2tabs 1 tab po 112.1 Theodore 2011 - q12 hrs D. 2013 M.D. Ceftriaxone 03/16/ Hx Solution 2gm iv q12hrs Theodore Sodium 2011 - Rec D. 2011 M.D. Cefazolin 03/16/ Hx Solution 2gm IV q8h Theodore Sodium 2011 - Rec D. , 2011 M.D. Oxycodone/Aceta / Hx Tablets 5-325mg 60tabs 1-2 tabs Demetris JAlbert minophen 0000 - po q 4 hrs Jessi 05/09/ prn pain M.Silvestre 2013 Metaxalone / Hx Tablets 800mg 30tabs take 1 Unknown 0000 - tablet 3 05/09/ times a 2013 day as needed Ibuprofen / Hx Tablets 200mg 100tab prn Unknown 0000 - s 2013 19 / Hx Tablets 90tabs 1 by mouth Unknown 0000 - every day 2017 Multi For Him 00/ Hx Tablets daily Unknown 50+ 0000 - 2017 Immunizations CPT Code Status Date Vaccine Lot # [id number] Given 04/11/2012 Fluvirin Im 3Yrs And Older [id number] Given 04/11/2012 Fluvirin Im 3Yrs And Older Vital Signs Date Vital Result Comment 04/21/2018 2:09pm Heart Rate 64 /min BP Systolic Sitting 102 mmHg BP Diastolic Sitting 60 mmHg Respiratory Rate 16 /min Body Temperature 98.5 F Pain Level 3 01/17/2018 3:15pm Respiratory Rate 17 /min Pain Level 4 10/25/2017 2:30pm Weight 126.00 lb Heart Rate 71 /min BP Systolic 90 mmHg BP Diastolic 60 mmHg Body Temperature 97.2 F O2 % BldC Oximetry 98 % 09/16/2017 3:25pm Height 63 inches 5'3" Weight 125.00 lb Heart Rate 80 /min BP Systolic 120 mmHg BP Diastolic 70 mmHg Respiratory Rate 12 /min Pain Level 4 BMI (Body Mass Index) 22.1 kg/m2 08/06/2017 1:27pm Weight 131.00 lb Heart Rate 72 /min BP Systolic Sitting 110 mmHg BP Diastolic Sitting 64 mmHg Body Temperature 97.4 F O2 % BldC Oximetry 96 % 07/05/2017 3:07pm Height 63 inches 5'3" Weight 128.00 lb BP Systolic 112 mmHg BP Diastolic 68 mmHg Respiratory Rate 18 /min Pain Level 5 BMI (Body Mass Index) 22.7 kg/m2 06/10/2017 9:43am Height 63 inches 5'3" Weight 128.00 lb Heart Rate 71 /min BP Systolic Sitting 116 mmHg BP Diastolic Sitting 64 mmHg Body Temperature 97.7 F O2 % BldC Oximetry 99 % BMI (Body Mass Index) 22.7 kg/m2 09/15/2013 3:43pm Height 63.5 inches 5'3.50" Weight 142.00 lb BP Systolic 100 mmHg BP Diastolic 58 mmHg Pain Level 2 low back BMI (Body Mass Index) 24.8 kg/m2 05/09/2013 3:15pm Height 63.5 inches 5'3.50" Weight 125.00 lb BP Systolic 92 mmHg BP Diastolic 60 mmHg Pain Level 5-6 headache BMI (Body Mass Index) 21.8 kg/m2 04/11/2012 2:06pm Height 63.5 inches 5'3.50" Weight 120.00 lb BP Systolic 104 mmHg BP Diastolic 68 mmHg Respiratory Rate 16 /min Body Temperature 96.8 F BMI (Body Mass Index) 20.9 kg/m2 03/28/2012 2:37pm Height 63.5 inches 5'3.50" Weight 120.00 lb Heart Rate 66 /min BP Systolic 108 mmHg BP Diastolic 70 mmHg Respiratory Rate 16 /min Body Temperature 98.8 F BMI (Body Mass Index) 20.9 kg/m2 03/16/2012 2:07pm Height 63.5 inches 5'3.50" Weight 116.00 lb Heart Rate 72 /min BP Systolic 110 mmHg BP Diastolic 74 mmHg Respiratory Rate 16 /min Body Temperature 97.4 F BMI (Body Mass Index) 20.2 kg/m2 Results Test Date Facility Test Result H/L Range Note Comp Metabolic Panel 04/11/2012 [facility] Sodium 137 mmol/L 133-[address] [place] [address] [phone] Potassium 4.1 mmol/L 3.5-5.0 Chloride 103 mmol/L 101-111 Co2 Carbon Dioxide 26.0 mmol/L 22-32 Anion Gap 8.0 mmol/L 2-11 Glucose 82 mg/dL 70-100 Blood Urea Nitrogen 7 mg/dL 6-24 Creatinine 0.80 mg/dL 0.50-1.40 BUN/Creatinine Ratio 8.8 8-20 Calcium 9.3 mg/dL 8.1-9.9 Total Protein 7.1 g/dL 6.2-8.1 Albumin 3.9 g/dL 3.6-5.4 Globulin 3.2 g/dL 2-4 Albumin/Globulin Ratio 1.2 1-3 Total Bilirubin 0.7 mg/dL 0.4-1.5 Alkaline Phosphatase 48 U/L 30-110 Alt 11 U/L Low 14-54 Ast 17 U/L 12-42 Egfr Non- 82.1 >60 Egfr 105.6 >60 1 Laboratory test 04/11/2012 [facility] C Reactive 0.5 mg/dL Less than finding [address] Protein 0.5 [place] [address] [phone] Erythrocyte Sed Rate 10 mm/Hr 0-14 CBC Auto Diff 04/11/2012 [facility] White Blood 7.1 10^3/uL 4.8-10.[address] [place] [address] [phone] Red Blood Count 4.75 10^6/uL 4.0-5.4 Hemoglobin 13.1 g/dL 12.0-16.0 Hematocrit 40 % 35-47 Mean Corpuscular Volume 85 fL 80-97 Mean Corpuscular Hemoglobin 28 pg 27-31 Mean Corpuscular HGB Conc 33 g/dL 31-36 Red Cell Distribution Width 13 % 10.5-15 Platelet Count 242 10^3/uL 150-450 Mean Platelet Volume 8 um3 7.4-10.4 Abs Neutrophils 3.7 10^3/uL 1.5-7.7 Abs Lymphocytes 2.9 10^3/uL 1.0-4.8 Abs Monocytes 0.4 10^3/uL 0-0.8 Abs Eosinophils 0 10^3/uL 0-0.6 Abs Basophils 0.1 10^3/uL 0-0.2 Abs Nucleated RBC 0 10^3/uL Granulocyte % 51.8 % 38-83 Lymphocyte % 41.6 % 25-47 Monocyte % 5.3 % 1-9 Eosinophil % 0.6 % 0-6 Basophil % 0.7 % 0-2 Nucleated Red Blood Cells % 0.1 Laboratory test 04/01/2012 [facility] Pathologist (SEE NOTE) [address] [place] [address] [phone] Manual 04/01/2012 [facility] Neutrophil % 24.0 % Low 38-[address] [place] [address] [phone] Band % 0 % 0-8 Lymphocytes % 48.0 % High 25-47 Monocytes % 15.0 % High 0-13 Eosinophils % 11.0 % High 0-6 Basophil % 2.0 % 0-2 Reactive Lymph % 0 % 0-6 Metamyelocytes % 0 % 0-2 Myelocytes % 0 % 0-1 Promyelocytes % 0 % Blast % 0 % RBC Morphology Normal Normal CBC Auto 04/01/2012 [facility] White Blood 3.6 10^3/uL Low 4.8 -10.[address] [place] [address] [phone] Red Blood Count 4.25 10^6/uL 4.0-5.4 Hemoglobin 12.2 g/dL 12.0-16.0 Hematocrit 36 % 35-47 Mean Corpuscular Volume 85 fL 80-97 Mean Corpuscular Hemoglobin 29 pg 27-31 Mean Corpuscular HGB Conc 34 g/dL 31-36 Red Cell Distribution Width 13 % 10.5-15 Platelet Count 197 10^3/uL 150-450 Mean Platelet Volume 9 um3 7.4-10.4 Abs Neutrophils 1.0 10^3/uL Low 1.5-7.7 Abs Lymphocytes 1.7 10^3/uL 1.0-4.8 Abs Monocytes 0.6 10^3/uL 0-0.8 Abs Eosinophils 0.3 10^3/uL 0-0.6 Abs Basophils 0 10^3/uL 0-0.2 Abs Nucleated RBC 0 10^3/uL Comp Metabolic Panel 03/16/2012 [facility] Sodium 137 mmol/L 133-[address] [place] [address] [phone] Potassium 4.1 mmol/L 3.5-5.0 Chloride 105 mmol/L 101-111 Co2 Carbon Dioxide 24.0 mmol/L 22-32 Anion Gap 8.0 mmol/L 2-11 Glucose 95 mg/dL 70-100 Blood Urea Nitrogen 10 mg/dL 6-24 Creatinine 0.80 mg/dL 0.50-1.40 BUN/Creatinine Ratio 12.5 8-20 Calcium 9.2 mg/dL 8.1-9.9 Total Protein 6.2 GM/DL 6.2-8.1 Albumin 3.5 GM/DL Low 3.6-5.4 Globulin 2.7 GM/DL 2-4 Albumin/Globulin Ratio 1.3 1-3 Total Bilirubin 0.2 mg/dL 0.1-1.0 3 Alkaline Phosphatase 61 U/L 30-110 Alt 8 U/L Low 14-54 Ast 19 U/L 12-42 Egfr Non- 82.1 >60 Egfr 105.6 >60 4 Laboratory test 03/16/2012 [facility] C Reactive < 0.5 mg/dL Less Than finding [address] Protein 0.5 [place] [address] [phone] Laboratory test 03/16/2012 [facility] Inr 0.90 0.82-1.17 [address] [place] [address] [phone] CBC No Diff 03/16/2012 [facility] White Blood 6.3 10^3/uL 4.8 -10.[address] [place] [address] [phone] Red Blood Count 4.21 10^6/uL 4.0-5.4 Hemoglobin 11.8 g/dL Low 12.0-16.0 Hematocrit 36 % 35-47 Mean Corpuscular Volume 86 fL 80-97 Mean Corpuscular Hemoglobin 28 pg 27-31 Mean Corpuscular HGB Conc 33 g/dL 31-36 Red Cell Distribution Width 13 % 10.5-15 Platelet Count 335 10^3/uL 150-450 Mean Platelet Volume 9 um3 7.4-10.4 Laboratory test 03/16/2012 [facility] Erythrocyte Sed 21 MM/HR High 0-[address] [place] [address] [phone] 1 Because ethnic data is not always readily available, this report includes an eGFR for both -Americans and non- Americans. The National Kidney Disease Education Program (NKDEP) does not endorse the use of the MDRD equation for patients that are not between the ages of 18 and 70, are , have extremes of body size, muscle mass, or nutritional status, or are non- or non-. According to the National Kidney Foundation, irrespective of diagnosis, the stage of the disease is based on the level of kidney function: Stage Description GFR(mL/min/1.73 m(2)) 1 Kidney damage with normal or decreased GFR 90 2 Kidney damage with mild decrease in GFR 60-89 3 Moderate decrease in GFR 30-59 4 Severe decrease in GFR 15-29 5 Kidney failure <15 (or dialysis) 2 CBC and smear reviewed. Inverted PMN/lymph ratio noted. No blasts seen. CBC and smear reviewed. Eosinophilia confirmed. May be allergy, drug or parasite related. REVIEWED BY MANJIT LAI MD 3 A metabolite of Naproxen, O-desmethylnaproxen, has been shown to interfere with the Jendrassik-Moni method for measuring total bilirubin. Samples from patients who have taken Naproxen have shown spurious elevation in total bilirubin levels. 4 Because ethnic data is not always readily available, this report includes an eGFR for both -Americans and non- Americans. The National Kidney Disease Education Program (NKDEP) does not endorse the use of the MDRD equation for patients that are not between the ages of 18 and 70, are , have extremes of body size, muscle mass, or nutritional status, or are non- or non-. According to the National Kidney Foundation, irrespective of diagnosis, the stage of the disease is based on the level of kidney function: Stage Description GFR(mL/min/1.73 m(2)) 1 Kidney damage with normal or decreased GFR 90 2 Kidney damage with mild decrease in GFR 60-89 3 Moderate decrease in GFR 30-59 4 Severe decrease in GFR 15-29 5 Kidney failure <15 (or dialysis) 5 The INR(International Normalized Ratio) was adopted by the World Health Organization (WHO) in 1982 as a standardized system of reporting PT (Prothrombin Time). The Centers for Disease Control (CDC) states that reporting of PT results in INR only is the preferred method. Recommended INR for Patients on Oral Anticoagulants Prophylaxis 2.0 - 3.0 Treatment of thrombosis 2.0 - 3.0 Prevention of embolism 2.0 - 3.0 Prevention of embolism from prosthetic heart valves 2.5 - 3.5 Procedures Date Code Description Status 03/09/2012 73262 ECHO Transthorasic Realtime 2D W Doppler & Color Flow Hosp Completed 03/04/2012 43745 Debridement Skin, Subcutaneous Tissue & Muscle Completed Encounters Type Date Location Provider Dx Diagnosis Office Visit 01/17/2018 Orthopedic Arben Corcoran M25.561 Pain in right 3:00p Services Of Daxa Iraheta MD knee M25.512 Pain in left shoulder Office Visit 10/25/2017 [facility] Internal Carly Mckeon, B37.3 Candidiasis of 2:20p Medicine - N.P. vulva and vagina [place] Office Visit 09/16/2017 Orthopedic Arben Corcoran S83.411D Sprain of medial 3:15p Services Of MD Esequiel collateral C.M.A. ligament of right knee, subs M25.512 Pain in left shoulder M54.2 Cervicalgia M25.561 Pain in right knee Office Visit 08/06/2017 1:00p [facility] Internal Sanjay Rivers S83.411D Sprain of medial Arias Reynolds M.D.,FACP collateral [address] ligament of right knee, subs M25.512 Pain in left shoulder Office Visit 07/05/2017 2:30p Orthopedic Arben Corcoran S83.411A Sprain of medial Services Of MD Esequiel collateral C.M.A. ligament of right knee, init M25.512 Pain in left shoulder S83.91xA Sprain of unspecified site of right knee, initial encounter S83.91xA Sprain of unspecified site of right knee, initial encounter S43.402A Unspecified sprain of left shoulder joint, initial encounter S43.402A Unspecified sprain of left shoulder joint, initial encounter Office Visit 06/10/2017 10:20a [facility] Internal Sanjay Rivers S81.011D Laceration Arias Reynolds M.D.,FACP without foreign [address] body, right knee, subs encntr S81.011D Laceration without foreign body, right knee, subs encntr M70.41 Prepatellar bursitis, right knee M70.41 Prepatellar bursitis, right knee Office Visit 09/15/2013 3:40p Neurosurgery Services Demetris oBwen 724.2 Lumbago Of Rita Gracia V22.2 State Incidental Normal Office Visit 05/09/2013 4:51p Neurosurgery Demetris De La Cruz 723.1 Cervicalgia Services Of Rita Bowen M.D. 723.1 Cervicalgia 723.1 Cervicalgia 723.4 Brachial Neuritis Or Radiculitis NOS 723.4 Brachial Neuritis Or Radiculitis NOS 310.2 Postconcussion Syndrome 310.2 Postconcussion Syndrome 723.4 Brachial Neuritis Or Radiculitis NOS 310.2 Postconcussion Syndrome Office Visit 05/09/2013 3:00p Neurosurgery Demetris De La Cruz 723.1 Cervicalgia Services Of Rita Bowen M.D. 723.1 Cervicalgia 723.4 Brachial Neuritis Or Radiculitis NOS 723.1 Cervicalgia 310.2 Postconcussion Syndrome 723.4 Brachial Neuritis Or Radiculitis NOS 723.4 Brachial Neuritis Or Radiculitis NOS 310.2 Postconcussion Syndrome 310.2 Postconcussion Syndrome Office Visit 09/27/2012 Neurosurgery Demetris De La Cruz 724.2 Lumbago 10:00a Services Of Rita Bowen M.D. Office Visit 07/11/2012 Neurosurgery Demetris De La Cruz 724.2 Lumbago 3:20p Services Of Rita Bowen M.D. Office Visit 04/11/2012 [place] Tony Rivers V04.81 Need For 2:00p Paige Bernal M.D. Prophylactic Diseases Vaccination & Inoculation/Influe nza 998.59 Postoperative Infection Other Office Visit 04/08/2012 9:20a Neurosurgery Services Demetris Bowen 724.2 Lumbago Of Rita Gracia V45.89 Postsurgical Status Other Office Visit 03/28/2012 2:20p [place] Tony Rivers 112.1 Candidiasis The Paige Bernal M.D. Vulva & Vagina Diseases 998.59 Postoperative Infection Other Office Visit 03/16/2012 [place] Tony Rivers 998.59 Postoperative 2:00p For Infectious Samia Bernal Infection Other Diseases 038.11 Methicillin Susceptible Septicemia Staphylococcus Aureus Office Visit 03/11/2012 11:53a [facility]bert 780.60 Fever, For Infectious Samia Bernal Unspecified Diseases 998.59 Postoperative Infection Other 482.41 Methicillin Suscept Pneumonia Due To Staphylococcus Aureus 790.7 Bacteremia Office Visit 03/10/2012 [facility] 998.59 Postoperative 2:01p andre Dee M.D. Infection Other Hospitalists Office Visit 03/09/2012 [facility] Silvestre 780.60 Fever, Unspecified 11:52a Infectious Padilla Bernal M.DAlbert 998.59 Postoperative Infection Other 482.41 Methicillin Suscept Pneumonia Due To Staphylococcus Aureus 790.7 Bacteremia Office Visit 03/09/2012 [facility] 998.59 Postoperative 2:01p andre Dee M.D. Infection Other Hospitalists Office Visit 03/08/2012 [facility] 998.59 Postoperative 2:00p andre Dee Infection Other Hospitalists M.DAlbert Office Visit 03/07/2012 [facility] 998.59 Postoperative 2:00p andre Dee Infection Other Hospitalists M.DAlbert Office Visit 03/07/2012 [facility] Silvestre 780.60 Fever, Unspecified 11:52a Infectious Padilla Bernal M.DAlbert 998.59 Postoperative Infection Other 482.41 Methicillin Suscept Pneumonia Due To Staphylococcus Aureus 790.7 Bacteremia Office Visit 03/06/2012 [facility] 998.59 Postoperative 1:59p andre Dee M.D. Infection Other Hospitalists Office Visit 03/05/2012 [facility] 998.59 Postoperative 1:59p andre Dee M.D. Infection Other Hospitalists Office Visit 03/04/2012 [facility] Tasia Barrios 998.59 Postoperative 1:58p andre Dee N.PAlbert Infection Other Hospitalists Office Visit 03/03/2012 [facility] 998.59 Postoperative 1:58p andre Dee M.D. Infection Other Hospitalists Office Visit 03/02/2012 [facility] 998.59 Postoperative 1:56p Assoc,andre Burger M.D. Infection Other Hospitalists [facility] 780.60 Fever, Unspecified 11:51a Infectious Samia Bernal Diseases 998.59 Postoperative Infection Other 482.41 Methicillin Suscept Pneumonia Due To Staphylococcus Aureus 790.7 Bacteremia Office Visit 03/01/2012 [facility] 998.59 Postoperative 1:55p Assoc,andre Burger M.D. Infection Other Hospitalists Office [facility]01[facility] 780.60 Fever, Unspecified 11:50a Padilla Harris M.D. 998.59 Postoperative Infection Other 482.41 Methicillin Suscept Pneumonia Due To Staphylococcus Aureus 790.7 Bacteremia Plan of Treatment 04/21/2018 - Arben Iraheta, MDM25.561 Pain in right kneeNew Xrays:MRI Knee Right W/O, Ordered: 04/21/18ollow up:Follow up: after MRI
[2018-05-06 12:51] VITALS: BP 118/74
--- NOTE | 2018-05-07 12:48 | UC ---
- Progress Note Progress Note: Pt called - has some eye and facial swelling - no report of resp involvement pt has taken bendaryl. PT states h/o similar reactio with Amox recommend d/c amox avoid heat, nsaids x 24 hour Benadryl ED /911 with any change or progression of sx, difficulty breathing Rx Doxycycline Course/Dx - Diagnoses Provider Diagnoses: Sinusitis Discharge - Sign-Out/Discharge Documenting (check all that apply): Post-Discharge Follow Up All imaging exams completed and their final reports reviewed: No Studies - Discharge Plan Condition: Stable Disposition: HOME Prescriptions: Amoxicillin PO (*) [Amoxicillin 875 MG (*)] 875 mg PO BID #14 tab Benzonatate CAP* [Tessalon 100 MG CAP*] 100 mg PO TID PRN #21 cap PRN Reason: Cough Fluconazole 150 MG (NF) [Diflucan 150 mg (NF)] 150 mg PO ONCE #1 tab Patient Education Materials: Sinusitis (ED) Referrals: Lazaro Lomeli MD [Medical Doctor] - Additional Instructions: If you develop a fever, shortness of breath, chest pain, new or worsening symptoms - please call your PCP or go to the ED. - Billing Disposition and Condition Condition: STABLE Disposition: Home
== END 2018-05-06 13:04 | disposition home or self-care (01) ==
LOC: UCEAST 11:51
DX: J32.9 Chronic sinusitis, unspecified (principal)
CPT/HCPCS: 99212; G0463

== ENCOUNTER 2019-03-16 16:09 | Emergency (ER) | payer BC ==
--- OUTSIDE RECORDS SUMMARY | 2019-03-16 17:10 | XMS REPORT | Continuity of Care Document ---
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 Onset: 09/15/2013 Acquired hallux rigidus Feng Beebe MD Onset: 03/06/2019 Stress fracture of metatarsal bone Feng Beebe MD Onset: 02/01/2019 Social History Type Date Description Comments Sex Unknown ETOH Use 06/10/2017 Drinks Alcoholic Beverages Occasionally Tobacco Use Start: Unknown Patient has never smoked Recreational Drug Use Denies Drug Use Smoking Status Reviewed: 03/06/19 Patient has never smoked Exercise Type/Frequency Exercises sporadically Allergies, Adverse Reactions, Alerts Active Allergies Reaction Severity Comments Date Latex Urticaria 03/16/2012 Medications Active Medications SIG Qnty Indications Ordering Provider Date Fluconazole 1 po q 3 days 3tabs Carly Mckeon, 06/10/2017 150mg Tablets N.P. Clobetasol Propionate topical every day 100gm Sanjay Rivers 06/10/2017 prn to scalp Samia Reynolds,FACP 0.05% Foam Tart Cardoza Advanced daily Unknown Capsules Ibuprofen 200 400-600mg every 6 Unknown 200mg hours as needed Tablets for pain. Multivitamin Adult 1 by mouth every Unknown day Tablets Gas-X 1 tab every 6 Unknown 80mg Chewtabs hours as needed gas pain Imodium A-D 2 tabs by mouth Unknown 2mg Tablets with first loose stool, followed by 1 by mouth as needed loose stool up to max 4 per day Medications Administered in Office Medication SIG Qnty Indications Ordering Provider Date Depomedrol 40MG Arben Iraheta MD 02/14/2019 Injection Immunizations CPT Code Status Date Vaccine Lot # [id number] Given 04/11/2012 Fluvirin Im 3Yrs And Older Q2037 Given 04/11/2012 Fluvirin Im 3Yrs And Older Vital Signs Date Vital Result Comment 03/06/2019 11:18am Height 63.5 inches 5'3.50" Weight 122.00 lb Heart Rate 78 /min BP Systolic 118 mmHg BP Diastolic 88 mmHg Respiratory Rate 18 /min Body Temperature 97.4 F Pain Level 0 BMI (Body Mass Index) 21.3 kg/m2 02/14/2019 1:41pm Height 63.5 inches 5'3.50" Weight 122.00 lb Heart Rate 80 /min BP Systolic 122 mmHg BP Diastolic 80 mmHg Pain Level 8 BMI (Body Mass Index) 21.3 kg/m2 Results Description No Information Available Procedures Date Code Description Status 02/14/2019 48744 Inject/Drain Joint/Bursa Major W/O US Completed Medical Devices Description No Information Available Encounters Type Date Location Provider Dx Diagnosis Office Visit 02/14/2019 [facility] Arben Corcoran M22.2x1 Patellofemoral 1:30p at Sherley Iraheta MD disorders, right knee M25.561 Pain in right knee S83.91xD Sprain of unspecified site of right knee, subs encntr Office Visit 02/01/2019 Richi Cavazos84.375A Stress 1:00p Orthopedics at fracture, left [place] foot, initial encounter for fracture Assessments Date Code Description Provider 03/06/2019 Richi84.375A Stress fracture, left foot, initial Feng Beebe MD encounter for fracture 03/06/2019 M20.21 Hallux rigidus, right foot Feng Beebe MD 02/14/2019 M22.2x1 Patellofemoral disorders, right knee Arben Iraheta MD 02/14/2019 M25.561 Pain in right knee Arben Iraheta MD 02/14/2019 S83.91xD Sprain of unspecified site of right knee, Arben Iraheta MD subsequent encounter 02/01/2019 M84.375A Stress fracture, left foot, initial Feng Beebe MD encounter for fracture Plan of Treatment Future Appointment(s):03/07/2019 9:45 am - Arben Iraheta MD at [facility] at [id number]/06/2019 - Feng Beebe MDM84.375A Stress fracture, left foot, initial encounter for fractureReferral:Donavan Gooden MD, Surgery,NeurologicalFollow up:Follow Up: As needed with me Referral to Dr GooednM20.21 Hallux rigidus, right foot Functional Status Description No Information Available Mental Status Description No Information Available Referrals Refer to Reason for Referral Status Appt Date Donavan Gooden MD LLE radiculopathy with h/o laminectomy Created [address] [place] [phone]
--- OUTSIDE RECORDS SUMMARY | 2019-03-16 17:10 | XMS REPORT | Continuity of Care Document ---
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 Onset: 09/15/2013 Stress fracture of metatarsal bone Feng Beebe MD Onset: 02/01/2019 Social History Type Date Description Comments Sex Unknown ETOH Use 06/10/2017 Drinks Alcoholic Beverages Occasionally Tobacco Use Start: Unknown Patient has never smoked Recreational Drug Use Denies Drug Use Smoking Status Reviewed: 06/14/18 Patient has never smoked Exercise Type/Frequency Exercises [...] stool up to max 4 per day Immunizations CPT Code Status Date Vaccine Lot # [id number] Given 04/11/2012 Fluvirin Im 3Yrs And Older Q2037 Given 04/11/2012 Fluvirin Im 3Yrs And Older Vital Signs Date Vital Result Comment 02/01/2019 1:22pm Height 63.5 inches 5'3.50" Weight 120.75 lb Heart Rate 64 /min BP Systolic 110 mmHg BP Diastolic 84 mmHg Respiratory Rate 16 /min Body Temperature 96.8 F Pain Level 0 BMI (Body Mass Index) 21.1 kg/m2 06/14/2018 2:56pm Heart Rate 72 /min BP Systolic 114 mmHg BP Diastolic 72 mmHg Body Temperature 97.5 F Pain Level 3 Results Description No Information Available Procedures Description No Information Available Medical Devices Description No Information Available Encounters Type Date Location Provider Dx Diagnosis Office Visit 02/01/2019 [facility] Feng Beebe M84.375A Stress fracture, 1:00p at [place] left foot, initial encounter for fracture Assessments Date Code Description Provider 02/01/2019 M84.375A Stress fracture, left foot, initial Feng Beebe MD encounter for fracture 08/21/2018 M25.561 Pain in right knee Arben Iraheta MD Plan of Treatment Future Appointment(s):03/03/2019 3:00 pm - Feng Beebe MD at [facility] at [id number]/14/2019 1:30 pm - Arben Iraheta MD at [facility] at [id number]/01/2019 - Feng Beebe MDM84.375A Stress fracture, left foot, initial encounter for fractureFollow up:Follow Up: 4 weeks Functional Status Description No Information Available Mental Status Description No Information Available Referrals Description No Information Available
[2019-03-16 17:27] VITALS: BP 116/68
--- NOTE | 2019-03-16 18:06 | UC ---
Throat Pain/Nasal Malik HPI - HPI Summary HPI Summary: 43-year-old female comes in with a chief complaint of difficulty with her voice and feeling ill for about 5 days. Here in clinic she has a fever of 100.1. No difficulty swallowing. Patient is a springer. She reports that she's saying for an extended duration and January of this year and ever since then her voice is not been it's normal. Minimal rhinorrhea. No complaint of any shortness of breath. Patient does feel ill. - History of Current Complaint Chief Complaint: UCRespiratory Stated Complaint: THROAT PAIN Time Seen by Provider: 03/16/19 17:37 Hx Last Menstrual Period: 1 month ago Pain Intensity: 5 - Allergies/Home Medications Allergies/Adverse Reactions: Allergies Allergy/AdvReac Type Severity Reaction Status Date / Time amoxicillin Allergy Swelling Verified 03/16/19 17:27 Of Face,Lips,& Throat cat dander Allergy Difficulty Verified 03/16/19 17:27 Breathing lactose Allergy GI Upset Verified 03/16/19 17:27 latex Allergy Itching Verified 03/16/19 17:27 PMH/Surg Hx/FS Hx/Imm Hx Previously Healthy: Yes Other History Of: Negative For: Hepatitis B, Anticoagulant Therapy - Surgical History Surgical History: Yes Surgery Procedure, Year, and Place: LEFT ANKLE and knee 1998, L4/5 LAMINECTOMY AND DISCECTOMY -02-16-12 [place], [place] , right knee surgery 2000, C SECTION 2013 - Family History Known Family History: Positive: Unknown - adopted - Social History Alcohol Use: Daily Alcohol Amount: 2/day Substance Use Type: None Smoking Status (MU): Never Smoked Tobacco - Immunization History Most Recent Influenza Vaccination: fall 2015 Most Recent Tetanus Shot: 11/15/13 Most Recent Pneumonia Vaccination: no history Review of Systems All Other Systems Reviewed And Are Negative: Yes Constitutional: Positive: Other - SEE HPI Skin: Positive: Negative Eyes: Positive: Negative ENT: Positive: Other - SEE HPI Respiratory: Positive: Negative Cardiovascular: Positive: Negative Gastrointestinal: Positive: Negative Motor: Positive: Negative Neurovascular: Positive: Negative Musculoskeletal: Positive: Negative Neurological: Positive: Negative Psychological: Positive: Negative Is Patient Immunocompromised?: No Physical Exam Triage Information Reviewed: Yes Appearance: No Pain Distress, Well-Nourished, Ill-Appearing - MILD Vital Signs: Initial Vital Signs Temp 100.1 F 03/16/19 17:16 Pulse 75 03/16/19 17:16 Resp 16 03/16/19 17:16 BP 116/68 03/16/19 17:16 Pulse Ox 97 03/16/19 17:16 Vital Signs Reviewed: Yes Eye Exam: Normal Eyes: Positive: Conjunctiva Clear ENT: Positive: Pharyngeal erythema, TMs normal Neck: Positive: Supple Respiratory: Positive: Lungs clear, Normal breath sounds, No respiratory distress Cardiovascular: Positive: RRR Musculoskeletal: Positive: Strength Intact, ROM Intact Neurological: Positive: Alert, Muscle Tone Normal Psychological: Positive: Age Appropriate Behavior Skin Exam: Normal Throat Pain/Nasal Course/Dx - Course Course Of Treatment: DISCUSSED VIRAL VERSES BACTERIAL INFECTIONS AND THE ROLE OF ANTIBIOTICS. THE PATIENT PREFERS TO BE ON ANTIBIOTICS AT THIS TIME. Patient's laryngitis started initially after singing for a long duration and January 2019. Last 4-5 days it appears that she's now has an infectious process additionally. Because of the patient being a springer and her laryngitis follow-up will be with ENT. - Differential Dx/Diagnosis Provider Diagnosis: Laryngitis Discharge ED - Sign-Out/Discharge Documenting (check all that apply): Patient Departure All imaging exams completed and their final reports reviewed: No Studies - Discharge Plan Condition: Stable Disposition: HOME Prescriptions: Clindamycin Cap(NF) [Clindamycin Cap 300 mg Cap(NF)] 300 mg PO TID #30 cap Patient Education Materials: Laryngitis (ED) Referrals: Payton Olguin MD [Primary Care Provider] - Ever Johnson MD [Medical Doctor] - Adair Corral MD [Medical Doctor] - Additional Instructions: FOLLOW UP WITH ENT. GET REEVALUATED SOONER IF NOT IMPROVED OR WORSE OR ANY QUESTIONS OR CONCERNS. - Billing Disposition and Condition Condition: STABLE Disposition: Home
== END 2019-03-16 18:21 | disposition home or self-care (01) ==
LOC: UCEAST 16:09
DX: J04.0 Acute laryngitis (principal); Z88.0 Allergy status to penicillin; Z91.09 Other allergy status, other than to drugs and biological substances; Z91.011 Allergy to milk products; Z91.040 Latex allergy status
CPT/HCPCS: 87651; 99212; G0463

== ENCOUNTER 2022-10-20 19:48 | Inpatient (IN) ==
[2022-10-21] MEDS ORDERED: Sodium Citrate/Citric Acid LIQ 15 ML UDC PO ONE ×2 (06:00)
[2022-10-21] MEDS ORDERED: Lactated Ringers 1000 ml BAG 1,000 ML IV ONE (06:00)
[2022-10-21] MEDS ORDERED: Buffered Lidocaine 1% SYRIN 1 ml INTRADERM ONE ×2 (06:00)
[2022-10-21] MEDS ORDERED: Lactated Ringers 1000 ml BAG 1,000 ML IV SCH ×3 (06:00→11:00)
[2022-10-21 06:54] LABS: ABS Eosinophils 0.1 10^3/uL (0.0-0.5); ABS Lymphocytes 2.8 10^3/uL (1.0-4.8); ABS Monocytes 0.8 10^3/uL (0.0-0.9); ABS Neutrophils 6.5 10^3/uL (1.5-7.6); ABS Nucleated RBC 0.01 10^3/ul; Eosinophil % 1.2 %; Hematocrit 35.7 % (35-45); Hemoglobin 11.9 g/dL (11.5-14.3); Lymphocyte % 27.3 %; Mean Corpuscular Hemoglobin 29.1 pg (27-33); Mean Corpuscular Hgb Conc 33.4 g/dL (31-36); Mean Corpuscular Volume 87.2 fL (80-97); Mean Platelet Volume 7.7 fL (7.5-11.2); Platelet Count 189 10^3/uL (150-450); Red Cell Distribution Width 13.8 % (12-17); White Blood Count 10.2 10^3/uL (3.8-11.8)
[2022-10-21] MEDS ORDERED: Scopolamine 1 mg/72hr PATCH ONE (07:36)
[2022-10-21] MEDS ORDERED: Morphine PF AMP (0.5MG/ML) 5 MG/10 ML AMP ONE (07:36)
[2022-10-21] MEDS ORDERED: Phenylephrine 40 mcg/mL 10mL (400mcg) SYRINGE ONE ×2 (07:36→08:53)
[2022-10-21] MEDS ORDERED: Oxytocin 10 UNITS/ML 1 ML VIAL ONE (07:36)
[2022-10-21] MEDS ORDERED: ceFOXitin 2 GM PREMIX 50 ML IVPB ONE (08:00)
[2022-10-21] MEDS ORDERED: Acetaminophen IV 1 GM/100ML 1,000 MG/100 ML BAG IV ONE (09:16)
[2022-10-21] MEDS ORDERED: Ondansetron 4 mg VIAL 2 MG/ML 2 ml VIAL ONE (09:32)
[2022-10-21] MEDS ORDERED: Dibucaine 1% OINT 28.35 GM TUBE PR PRN (10:01)
[2022-10-21] MEDS ORDERED: Tetan/Diph/Pertus SYR(Tdap) 0.5 ML SYR(BOOSTRIX) use SYR contains LATEX IM ONE (10:01)
[2022-10-21] MEDS ORDERED: Witch Hazel PAD JAR TOPICAL PRN (10:01)
[2022-10-21] MEDS ORDERED: Glycerin ADULT 2.4 gm SUPP PR PRN (10:01)
[2022-10-21] MEDS ORDERED: Acetaminophen IV 1 GM/100ML 1,000 MG/100 ML BAG IV PRN (10:07)
[2022-10-21] MEDS ORDERED: Scopolamine 1 mg/72hr PATCH TRANSDERM PRN (10:07)
[2022-10-21] MEDS ORDERED: Metoclopramide 5 MG/ML VIAL (10 mg) IV PRN (10:07)
[2022-10-21] MEDS ORDERED: Naloxone 0.4 mg VIAL 0.4 mg/ml 1 ml VIAL IV PUSH PRN (10:07)
[2022-10-21] MEDS ORDERED: Ondansetron 4 mg VIAL 2 MG/ML 2 ml VIAL IV PRN ×2 (10:07→10:08)
[2022-10-21] MEDS ORDERED: Naloxone 0.4 mg VIAL 0.4 mg/ml 1 ml VIAL IV PRN (10:08)
[2022-10-21] MEDS ORDERED: fentaNYL 100 mcg/2 ml 50 MCG/ML VIAL IV PRN (10:08)
[2022-10-21] MEDS ORDERED: Oxytocin in LR 20,000 MILLI.UNIT/1,000 ML BAG IV SCH (10:15)
[2022-10-21 10:48] LABS: Urine Appearance Clear; Urine Bilirubin Negative (Negative); Urine Blood Negative (Negative); Urine Color Straw; Urine Glucose Negative (Negative); Urine Ketones Negative (Negative); Urine Nitrite Negative (Negative); Urine Protein Negative (Negative); Urine Specific Gravity 1.003 (1.002-1.030); Urine Urobilinogen Negative (Negative)
[2022-10-21 10:54] LABS: Urine Benzodiazepine Screen None Detected (None Detect); Urine Cannabinoids Screen None Detected (None Detect); Urine Opiates Screen None Detected (None Detect)
[2022-10-22 06:13] LABS: ABS Eosinophils 0.1 10^3/uL (0.0-0.5); ABS Lymphocytes 1.8 10^3/uL (1.0-4.8); ABS Monocytes 0.6 10^3/uL (0.0-0.9); ABS Neutrophils 8.1 10^3/uL (1.5-7.6); ABS Nucleated RBC 0.01 10^3/ul; Eosinophil % 1.1 %; Hemoglobin 10.8 g/dL (11.5-14.3); Lymphocyte % 16.6 %; Mean Corpuscular Hemoglobin 29.8 pg (27-33); Mean Corpuscular Hgb Conc 34.9 g/dL (31-36); Mean Corpuscular Volume 85.5 fL (80-97); Mean Platelet Volume 7.6 fL (7.5-11.2); Nucleated Red Blood Cells % 0.1 /100 WBC (0.0-0.4); Platelet Count 157 10^3/uL (150-450); Red Blood Count 3.62 10^6/uL (3.63-4.92); Red Cell Distribution Width 13.6 % (12-17); White Blood Count 10.6 10^3/uL (3.8-11.8)
[2022-10-22] MEDS: Vitamins A & D OINT 42.5 GM TUBE TOPICAL SCH ×2 (12:47→21:26)
[2022-10-23] MEDS: Vitamins A & D OINT 42.5 GM TUBE TOPICAL SCH ×3 (08:18→22:14)
[2022-10-24 08:26] VITALS: BP 108/70
== END 2022-10-24 14:30 | disposition home or self-care (01) | DRG 540 ==
LOC: MCHOB 10-21 05:48
PROVIDERS: ADMIT Obstetrics & Gynecology; ATTEND Obstetrics & Gynecology